=== PATIENT | female | born 1990 | race Caucasian/White ===

== ENCOUNTER 2017-05-08 17:13 | Emergency (ER) | payer OTHER ==
[~2017-05-08] VITALS: Ht 157.5 cm; Wt 56.8 kg
[~2017-05-08 17:13] MED LIST: ACYC800T PO; BENT20TA PO; OMEP40CA2 PO; TOPA1TAB PO; ZYRT10CA PO; bcp
[2017-05-08] MEDS ORDERED: NS 1,000 ML IV ONE (20:30)
[2017-05-08] MEDS ORDERED: ONDANSETRON 4MG/2ML VIAL (J2405) IV ONE (20:30)
[2017-05-08] MEDS ORDERED: KETOROLAC 30 MG/ML VIAL (J1885) IV ONE (20:30)
[2017-05-08 21:46] LABS: BASO % 0.6 % (0.0-1.0); EOS # 0.2 K/mm3 (0.0-0.50); EOS % 1.7 % (0.0-3.0); LARGE UNSTAINED CELL # 0.1 K/mm3 (0.0-0.4); LARGE UNSTAINED CELL % 1.3 % (0.0-4.0); LYMPH % 30.2 % (24.0-44.0); MEAN CORPUSCULAR HEMOGLOBIN 31.1 pg (27.0-33.0); MEAN CORPUSCULAR HGB CONC 34.1 g/dl (32.0-36.5); MEAN CORPUSCULAR VOLUME 91.2 fl (80.0-96.0); MONO # 0.6 K/mm3 (0.0-0.8); NEUTROPHILS # 5.7 K/mm3 (1.8-7.7); NEUTROPHILS % 60.2 % (36.0-66.0); PLATELET COUNT, AUTOMATED 291 k/mm3 (150-450); RED CELL DISTRIBUTION WIDTH 12.3 % (11.5-14.5); WHITE BLOOD COUNT 9.5 K/mm3 (4.0-10.0)
[2017-05-08 22:04] LABS: ALBUMIN 3.7 GM/DL (3.2-5.2); ALKALINE PHOSPHATASE 58 U/L (45-117); ALT/SGPT 16 U/L (12-78); AMYLASE 63 U/L (25-115); ANION GAP 9 MEQ/L (8-16); AST/SGOT 12 U/L (15-37); BILIRUBIN,DIRECT < 0.1 MG/DL (0.0-0.2); BILIRUBIN,TOTAL 0.2 MG/DL (0.2-1.0); BLOOD UREA NITROGEN 13 MG/DL (7-18); CALCIUM LEVEL 8.9 MG/DL (8.5-10.1); CARBON DIOXIDE LEVEL 23 MEQ/L (21-32); CHLORIDE LEVEL 109 MEQ/L (98-107); CREATININE FOR GFR 0.78 MG/DL (0.55-1.02); GLOMERULAR FILTRATION RATE > 60.0 (>60); GLUCOSE, FASTING 82 MG/DL (70-105); SODIUM LEVEL 141 MEQ/L (136-145); TOTAL PROTEIN 7.8 GM/DL (6.4-8.2)
--- NOTE | 2017-05-08 22:20 | REPUSA ---
CLINICAL HISTORY: Left lower quadrant pain. TECHNIQUE: Ultrasound of the pelvis was performed. Transabdominal and vaginal exams were performed. E ndovaginal exam was performed for more complete evaluation of the adnexa. Doppler ultrasound was perf ormed to evaluate ovarian blood flow ULTRASOUND PELVIS : Uterus: 7.9 x 2.4 x 4.7 cm. Normal without masses. Endometrial stripe: Normal 8 mm thickness. Right ovary: 2.2 x 1.8 x 2.5 cm. Normal size. No masses. Normal vascular flow, resistive index 0.57. Left ovary: 3.1 x 1.7 x 3.4 cm. Normal size. No masses. Normal vascular flow, resistive index 0.44. Pelvic fluid: None. IMPRESSION: Normal pelvic ultrasound.
[2017-05-08 22:38] VITALS: BP 111/65
== END 2017-05-08 22:40 | disposition home or self-care (01) ==
LOC: M ED 17:13
DX: R10.32 Left lower quadrant pain (principal); K58.8 Other irritable bowel syndrome; Z72.0 Tobacco use
CPT/HCPCS: 76830; 76856; 80048; 80076; 81001; 81025; 82150; 83690; 85025; 87086; 93976; 96374; 96375; 99283; J1885; J2405

== ENCOUNTER 2017-06-16 17:24 | Day surgery (SDC) | payer OTHER ==
[~2017-06-16] VITALS: Ht 157.5 cm; Wt 57.7 kg
[2017-06-16] MEDS ORDERED: TOPI100T9 PO (17:56)
[2017-06-16] MEDS ORDERED: RECLTAB PO (17:56)
[2017-06-16] MEDS ORDERED: TOPI25TA10 PO (17:56)
[2017-06-16] MEDS ORDERED: ONDANSETRON 4MG/2ML VIAL (J2405) IV ONE (20:00)
[2017-06-16] MEDS ORDERED: MORPHINE 4 MG/ML 1ML SYRINGE IV ONE (20:00)
[2017-06-16] MEDS ORDERED: NS 1,000 ML IV ONE (20:00)
[2017-06-16 20:29] LABS: CONTROL LINE UCG INT CTR LINE PRESENT
[2017-06-16 20:36] LABS: BASO # 0.1 K/mm3 (0.0-0.2); BASO % 0.6 % (0.0-1.0); EOS # 0.4 K/mm3 (0.0-0.50); EOS % 3.3 % (0.0-3.0); LARGE UNSTAINED CELL # 0.1 K/mm3 (0.0-0.4); LARGE UNSTAINED CELL % 0.7 % (0.0-4.0); LYMPH # 2.5 K/mm3 (1.5-6.5); LYMPH % 19.9 % (24.0-44.0); MEAN CORPUSCULAR HGB CONC 33.1 g/dl (32.0-36.5); MEAN CORPUSCULAR VOLUME 90.7 fl (80.0-96.0); MONO # 0.7 K/mm3 (0.0-0.8); MONO % 5.7 % (0.0-5.0); NEUTROPHILS # 8.4 K/mm3 (1.8-7.7); NEUTROPHILS % 69.8 % (36.0-66.0); PLATELET COUNT, AUTOMATED 177 k/mm3 (150-450); RED CELL DISTRIBUTION WIDTH 11.8 % (11.5-14.5)
[2017-06-16] MEDS ORDERED: KETOROLAC 30 MG/ML VIAL (J1885) IV ONE (20:45)
[2017-06-16 20:46] LABS: ALBUMIN 3.7 GM/DL (3.2-5.2); ALBUMIN/GLOBULIN RATIO 1.03 (1.00-1.93); ALKALINE PHOSPHATASE 50 U/L (45-117); ALT/SGPT 16 U/L (12-78); AMYLASE 41 U/L (25-115); ANION GAP 8 MEQ/L (8-16); AST/SGOT 11 U/L (15-37); BILIRUBIN,DIRECT 0.1 MG/DL (0.0-0.2); BILIRUBIN,TOTAL 0.4 MG/DL (0.2-1.0); BLOOD UREA NITROGEN 10 MG/DL (7-18); CALCIUM LEVEL 8.7 MG/DL (8.5-10.1); CARBON DIOXIDE LEVEL 24 MEQ/L (21-32); CHLORIDE LEVEL 106 MEQ/L (98-107); CREATININE FOR GFR 0.84 MG/DL (0.55-1.02); GLOMERULAR FILTRATION RATE > 60.0 (>60); GLUCOSE, FASTING 75 MG/DL (70-105); POTASSIUM SERUM 3.5 MEQ/L (3.5-5.1); SODIUM LEVEL 138 MEQ/L (136-145); TOTAL PROTEIN 7.3 GM/DL (6.4-8.2)
[2017-06-16] MEDS ORDERED: ISOVUE-370 76% 100ML VIAL (Q9967) As Ordered ONE (21:45)
--- NOTE | 2017-06-16 22:40 | REPUSA ---
CT of the abdomen and pelvis with contrast Clinical statement: Pain. Technique: Multiple axial CT images were obtained from the base of the lungs through the floor of the pelvis utilizing 5 mm axial slices after administration of nonionic intravenous contrast. Coronal an d sagittal reconstructions were also obtained. No comparison is available. Findings: Chest: The visualized lung bases are clear. Abdomen: The liver, spleen, pancreas, kidneys, gallbladder, and adrenal glands are unremarkable. The aorta is within normal limits. There is no evidence of abdominal lymphadenopathy or ascites. Pelvis: Moderate amount of stool fills the colon. The cecum is located in the higher mid-abdomen, jus t above the uterus. The appendix is thickened and inflamed, measuring up to 12 mm. Significant surrou nding fluid is noted. There is no evidence of perforation or abscess. There is no evidence of bowel o bstruction. The urinary bladder is within normal limits. The other pelvic structures appear grossly i ntact. There is no evidence of pelvic lymphadenopathy. There is a small amount of free fluid in the c ul-de-sac. Bones: There are no suspicious osseous abnormalities seen. Impression: 1. Acute appendicitis. No evidence of abscess or perforation. Significant surrounding inflammation an d fluid. 2. Small amount of free fluid in the cul-de-sac. 3. Moderate constipation. Dr. Tuttle was notified of these findings at 10:30 PM on 06/16/2017.
[2017-06-16] MEDS ORDERED: PIPERACILLIN/TAZOBACTAM SOD 3.375 GM in D5W MINI-BAG PLUS 50 ML IV ONE (22:45)
[2017-06-16] MEDS ORDERED: FLON50SP (22:57)
[2017-06-16] MEDS ORDERED: OMEP20CA3 PO (22:57)
[2017-06-16] MEDS ORDERED: CETI10TA PO (22:57)
[2017-06-16] MEDS ORDERED: ONDANSETRON 4MG/2ML VIAL (J2405) IV PRN (23:00)
[2017-06-16] MEDS ORDERED: ACETAMINOPHEN TAB 650MG DOSE (2X325MG) PO PRN (23:00)
[2017-06-16] MEDS ORDERED: ZOSYN 3.375 GM VIAL (J2543) As Ordered ONE (23:54)
[2017-06-17] VITALS (10 sets, daily range): BP systolic 100–121; BP diastolic 52–63
[2017-06-17] MEDS ORDERED: PERCOCET 5MG/325MG TAB As Ordered ONE ×2 (00:27→14:38)
[2017-06-17] MEDS: PERCOCET 5MG/325MG TAB PO PRN ×4 (00:28→18:35)
[2017-06-17] MEDS: LR 1,000 ML IV SCH ×2 (00:51→07:03)
[2017-06-17] MEDS: PIPERACILLIN/TAZOBACTAM SOD 3.375 GM in D5W MINI-BAG PLUS 50 ML IV SCH ×3 (06:07→17:50)
[2017-06-17] MEDS ORDERED: KCL 20MEQ IN D5/.45NACL 1000ML As Ordered ONE (09:20)
[2017-06-17] MEDS: SENOKOT S TAB PO SCH ×2 (09:25→20:31)
[2017-06-17] MEDS: KCL 20MEQ IN D5/0.45NS 1000ML 1,000 ML IV SCH ×2 (09:25→22:13)
[2017-06-17] MEDS: ACYCLOVIR 200 MG CAPSULE PO SCH (11:47)
--- NOTE | 2017-06-17 12:04 | HPEPDOC ---
General Surgery H&P Date of Admission History and Physical CHIEF COMPLAINT: abdominal pain HISTORY OF PRESENT ILLNESS: Patient presents with 3 to 4 day history of periumbilical, suprapubic and epigastric discomfort and tenderness with nausea. Just prior known history of irritable bowel syndrome by her manifestations mainly crampy abdominal pain usually at the epigastric and periumbilical area which she she initially thought was what she was having. After a while that the discomfort did not feel as her usual type of crampy pain and is more associated with any nausea 4 thus she consulted at the emergency room. She denies noting any fever. She denies diarrhea or constipation. ALLERGIES: Please see below. HOME MEDICATIONS: Please see below. PAST MEDICAL HISTORY: Irritable Bowel Syndrome migraines PAST SURGICAL HISTORY: 2 caesarian sections PERSONAL/SOCIAL HISTORY: Denies smoking (5 cigs a day), alcohol use, or recreational drug use REVIEW OF SYSTEMS: GENERAL: Denies chills, fatigue, fever, weight gain and weight loss. HEENT: Denies blurred vision and double vision. Denies ear symptoms. Denies hoarseness. NECK: Denies any neck pain. CARDIOVASCULAR: Denies chest pain and palpitations. MUSCULOSKELETAL: Denies arthralgias, back pain and thrombophlebitis. SKIN: Denies rash. NEUROLOGIC: Reports migraine headaches once a week PSYCHIATRIC: Denies anxiety and depression. ENDOCRINE: Denies thyroid disease. HEMATOLOGY/ONCOLOGY: Denies any bleeding or clotting disorder. HEART: Denies any chest pains, palpitations, paroxysmal dyspnea, orthopnea. PULMONARY: Denies chronic cough, dyspnea and wheezing. GASTROINTESTINAL: Patient reports crampy abdominal pain secondary to irritable bowel syndrome. GENITOURINARY: Denies dysuria, frequency, hematuria and nocturia. ENDOCRINE: Denies polydipsia, polyphagia, polyuria, heat or cold intolerance. INFECTIOUS: Denies any recent upper respiratory tract infection, UTI, need for use of antibiotics. NUTRITION: Fair appetite. PHYSICAL EXAMINATION: VITAL SIGNS: Please see below. GENERAL APPEARANCE: Patient seen at bedside, appears comfortable. Awake, alert, oriented. HEENT: Normocephalic, atraumatic. [place] palpebral conjunctivae. Anicteric sclerae. Lips moist. CHEST: No chest wall abnormalities. Normal respiratory motion/effort. NECK: Supple. No thyromegaly. No lymphadenopathies. LUNGS: Lung sounds are clear to auscultation bilaterally. No wheezing appreciated. HEART: No chest wall abnormalities. Heart rate and rhythm are regular with no murmurs. ABDOMEN: Abdomen is mildly distended, soft, slightly rounded. No hepatosplenomegaly. Patient has point tenderness over the suprapubic area and mild rebound also quite tender over the epigastric area. Mild tenderness over the periumbilical area and right lower quadrant area. Nontender operative left lower quadrant area SKIN: Warm, moist. EXTREMITIES: Extremities have no deformities. No edema identified. NEUROLOGICAL: awake, alert, oriented ANCILLARIES: . LABORATORY DATA: Please see below. MICROBIOLOGY: Please see below. IMAGING: CT abdomen and pelvis Abdomen: The liver, spleen, pancreas, kidneys, gallbladder, and adrenal glands are unremarkable. The aorta is within normal limits. There is no evidence of abdominal lymphadenopathy or ascites. Pelvis: Moderate amount of stool fills the colon. The cecum is located in the higher mid-abdomen, just above the uterus. The appendix is thickened and inflamed, measuring up to 12 mm. Significant surrounding fluid is noted. There is no evidence of perforation or abscess. There is no evidence of bowel obstruction. The urinary bladder is within normal limits. The other pelvic structures appear grossly intact. There is no evidence of pelvic lymphadenopathy. There is a small amount of free fluid in the cul-de-sac. Bones: There are no suspicious osseous abnormalities seen. Impression: 1. Acute appendicitis. No evidence of abscess or perforation. Significant surrounding inflammation and fluid. 2. Small amount of free fluid in the cul-de-sac. 3. Moderate constipation. IMPRESSION AND PLAN: Acute Appendicitis with localized peritonitis Patient has been advised for need for surgery. We will perform laparoscopic appendcectomy. Details of the procedure, risks and benefits fully discussed with the patient and consent obtained. I will give her zosyn for perioperative antibiotics while awaiting availability of the OR Patient's main area of pain and ileus at the epigastric area which is a bit away from the location of the appendix. We'll also take a look at the area for any possible explanation for this or this could just be part of her irritable bowel syndrome. Vital Signs Vital Signs Date Time Temp Pulse Resp B/P (MAP) Pulse Ox O2 Delivery O2 Flow Rate FiO2 06/17/17 00:58 18 06/17/17 00:35 99.0 67 121/61 (81) 98 Room Air I&Os I&O- Last 24 Hours up to 6 AM 06/17/17 06:00 Intake Total 1050 ml Output Total 300 ml Balance 750 ml Laboratory Data Labs 24H Laboratory Tests 2 06/16/17 20:11: Urine Appearance CLEAR, Urine Color YELLOW, Urine pH 7.0, Urine Specific [place] 1.011, Urine Protein NEGATIVE, Urine Glucose (UA) NEGATIVE, Urine Ketones 1+H, Urine Urobilinogen 0.2, Urine Bilirubin NEGATIVE, Urine Leukocyte Esterase TRACEH, Urine Blood NEGATIVE, Urine Nitrite NEGATIVE, Urine WBC (Auto) 1, Urine RBC (Auto) 5H, Urine Hyaline Casts (Auto) 0, Urine Bacteria (Auto) 1+H , Urine Squamous Epithelial Cells 0, Urine Sperm (Auto) 06/16/17 20:17: White Blood Count 12.0H, Red Blood Count 4.16, Hemoglobin 12.5, Hematocrit 37.8 , Mean Corpuscular Volume 90.7, Mean Corpuscular Hemoglobin 30.0, Mean Corpuscular Hemoglobin Concent 33.1, Red Cell Distribution Width 11.8, Platelet Count 177, Neutrophils (%) (Auto) 69.8H, Lymphocytes (%) (Auto) 19.9L, Monocytes (%) (Auto) 5.7H, Eosinophils (%) (Auto) 3.3H, Basophils (%) (Auto) 0.6 , Neutrophils # (Auto) 8.4H, Lymphocytes # (Auto) 2.5, Monocytes # (Auto) 0.7, Eosinophils # (Auto) 0.4, Basophils # (Auto) 0.1, Large Unclassified Cells % 0.7 , Large Unclassified Cells # 0.1, Anion Gap 8, Glomerular Filtration Rate > 60.0 , Calcium Level 8.7, Aspartate Amino Transf (AST/SGOT) 11L, Alanine Aminotransferase (ALT/SGPT) 16, Alkaline Phosphatase 50, Total Bilirubin 0.4, Direct Bilirubin 0.1, Total Protein 7.3, Albumin 3.7, Albumin/Globulin Ratio 1.03, Amylase Level 41, Lipase 75 06/16/17 20:19: Urine Test NEGATIVE CBC/BMP Laboratory Tests 06/16/17 20:17 Red Blood Count 4.16, Mean Corpuscular Volume 90.7, Mean Corpuscular Hemoglobin 30.0, Mean Corpuscular Hemoglobin Concent 33.1, Red Cell Distribution Width 11.8 , Neutrophils (%) (Auto) 69.8 H, Lymphocytes (%) (Auto) 19.9 L, Monocytes (%) ( Auto) 5.7 H, Eosinophils (%) (Auto) 3.3 H, Basophils (%) (Auto) 0.6, Neutrophils # (Auto) 8.4 H, Lymphocytes # (Auto) 2.5, Monocytes # (Auto) 0.7, Eosinophils # (Auto) 0.4, Basophils # (Auto) 0.1 Home Medications Scheduled (Reclipsen 0.15-30 mg-Mcg) 1 Tab Tab, 1 TAB PO QHS, (Reported) (Flonase Allergy Relief Ch) 50 Mcg/Act Spr, 1 SPRAY NA DAILY, (Reported) Acyclovir (Acyclovir) 800 Mg Tab, 800 MG PO QHS, (Reported) Cetirizine HCl (Cetirizine HCl) 10 Mg Tab, 10 MG PO QHS, (Reported) Omeprazole (Omeprazole) 20 Mg Cap, 20 MG PO DAILY, (Reported) Topiramate (Topiramate) 25 Mg Tab, 25 MG PO BID, (Reported) Topiramate (Topiramate) 100 Mg Tab, 100 MG PO QHS, (Reported) Allergies Coded Allergies: Aspirin (Unverified Allergy, Intermediate, HIVES, 06/16/17) Morphine (Verified Allergy, Intermediate, HIVES, 06/16/17) THANH PERSON MD Jun 17, 2017 05:35
[2017-06-17] MEDS ORDERED: LIDOCAINE 1% SDV INJ 30 ML VIAL As Ordered ONE (12:39)
[2017-06-17] MEDS ORDERED: BUPIVACAINE HCL 0.25% 30 ML VIAL As Ordered ONE (12:40)
[2017-06-17] MEDS ORDERED: ZOSYN 3.375 GM VIAL (J2543) As Ordered ONE (12:56)
[2017-06-17] MEDS ORDERED: fentaNYL 250 MCG/5 ML INJECTION (J3010) As Ordered ONE (13:14)
[2017-06-17] MEDS ORDERED: MIDAZOLAM INJ 2 MG/2 ML VIAL (J2250) As Ordered ONE (13:14)
[2017-06-17] MEDS ORDERED: PROPOFOL 200 MG/20 ML VIAL As Ordered ONE (13:14)
[2017-06-17] MEDS ORDERED: ROCURONIUM BROMIDE 50 MG/5 ML VIAL/SYRINGE As Ordered ONE (13:14)
[2017-06-17] MEDS ORDERED: LIDOCAINE 2% INJ 100 MG/5 ML SDV (FOR ANES.) As Ordered ONE (13:14)
[2017-06-17] MEDS ORDERED: METOCLOPRAMIDE INJ 10MG/2ML VIAL (J2765) As Ordered ONE ×2 (13:15→14:49)
[2017-06-17] MEDS ORDERED: PHENYLephrine HCL 500 MCG/5 ML (100MCG/ML) SYRINGE (J2370) As Ordered ONE (13:42)
[2017-06-17] MEDS ORDERED: ONDANSETRON 4MG/2ML VIAL (J2405) As Ordered ONE ×2 (13:53→14:38)
[2017-06-17] MEDS ORDERED: GLYCOPYRROLATE INJ 0.2 MG/ML 2 ML VIAL As Ordered ONE (13:55)
[2017-06-17] MEDS ORDERED: NEOSTIGMINE 10 MG/10 ML VIAL (J2710) As Ordered ONE (13:56)
--- NOTE | 2017-06-17 14:29 | ROOPDOC ---
[facility] Report Of Operation Report of Operation DATE OF PROCEDURE: 06/17/17 PREPROCEDURE DIAGNOSES: Acute Appendicitis. POSTPROCEDURE DIAGNOSES: Acute Appendicitis. PROCEDURE: Laparoscopic Appendectomy. SURGEON: Jacques Marie MD [employer] COMMISSIONER: ANESTHESIA: general anesthesia ESTIMATED BLOOD LOSS: Approximately mL. COMPLICATIONS: . REMARKS: . PROCEDURE NOTE: Operative findings include uterus adhered to the anterior abdominal wall, tiny fascial defects in the midline closure from her but no gross hernia. Gallbladder distended but noninflamed. Appendix located in the retrocecal course adhered to the right pelvic sidewall where the iliac vessels course. On manipulating the appendix a small amount of purulent drainage Armando out on disconnecting the appendix from the posterolateral sidewall. DESCRIPTION OF PROCEDURE: Patient has been given a dose of Zosyn perioperatively.Patient was brought to the operating room, placed supine on the table. Sequential compression device placed for DVT prophylaxis. General endotracheal anesthesia started. The abdomen prepped and draped in usual sterile fashion. After a surgical timeout, we began our surgery Entry into the abdomen done through an incision above the umbilicus. Veress needle inserted on a controlled fashion. Intra-abdominal placement confirmed with saline drop technique. CO2 insufflation started to a pressure of 15 mmHg. Using the same incision a 12 mm port was placed under direct vision of laparoscope. Insertion site was inspected for injury and none was found. He was placed on a Trendelenburg position the right side tilted to about 30 to allow for better visualization of the appendix. 2 working ports were placed left upper quadrant and left lower quadrant area under direct vision. The uterus is adhered to the suprapubic area were I usually place a 5 mm suprapubic port. Operative findings include uterus adhered to the anterior abdominal wall, tiny fascial defects in the midline closure from her but no gross hernia. Gallbladder distended but noninflamed. Appendix located in the retrocecal course adhered to the right pelvic sidewall where the iliac vessels course. On manipulating the appendix a small amount of purulent drainage Armando out on disconnecting the appendix from the posterolateral sidewall. The appendix was located, the adhered bowels and mesentery was widely dissected away from the appendix freeing up the appendix from the inflammatory adhesions using [place] instrument and suction irrigation. The Surrounding bowels retracted away from the appendix. The peritoneal attachments of the appendix as it courses behind the medial part of the cecal side wall was opened up with Harmonic Scalpel. Starting at the midportion the mesial appendix was divided close to the wall of the appendix going down towards the base. Once an adequate window was created were able to lift the distal tip of the appendix from its attachments to the pelvic posterior lateral sidewall. There is a small amount of mucoid purulent drainage that came out as we disconnected the appendix from the sidewall of the pelvis. This was controlled with suction. The rest of the mesial appendix was further divided to free up the appendix down to its base. 2 0 -PDS Endoloop was placed to ligate the appendix at its base then divided with a Harmonic Scalpel the stump cauterized. Stump appears healthy. Appendix was then delivered into an Endo Catch bag. After re-insufflation the surgical site was inspected for hemostasis, the visualized fluid collections in the right gutter and in the pelvis was irrigated and suctioned off until clear return. Surrounding areas of the abdomen and inspected for fluid collections or signs of injury. The abdomen was deflated. All ports removed. The umbilical fascial defect repaired with 0 Vicryl in a mattress fashion. All skin incisions closed with 4-0 Monocryl in a subcuticular fashion. Steri-Strips and gauze dressing used for wound coverage. Patient was promptly awake and extubated and brought to recovery room stable. All counts of sponges and instruments verified to be correct. JACQUES MARIE MD Jun 17, 2017 13:15
[2017-06-17] MEDS ORDERED: LR 1,000 ML IV SCH (14:30)
[2017-06-17] MEDS ORDERED: ONDANSETRON 4MG/2ML VIAL (J2405) IV PRN (14:30)
[2017-06-17] MEDS ORDERED: PERCOCET 5MG/325MG TAB PO PRN (14:30)
[2017-06-17] MEDS ORDERED: KETOROLAC 30 MG/ML VIAL (J1885) As Ordered ONE (14:41)
[2017-06-17] MEDS: KETOROLAC 30 MG/ML VIAL (J1885) IV PRN ×2 (14:45→20:49)
[2017-06-17] MEDS ORDERED: METOCLOPRAMIDE INJ 10MG/2ML VIAL (J2765) IV ONE (15:00)
[2017-06-17] MEDS ORDERED: fentaNYL 100 MCG/2 ML INJECTION (J3010) As Ordered ONE (15:04)
[2017-06-17] MEDS: fentaNYL 100 MCG/2 ML INJECTION (J3010) IV PRN ×3 (15:07→15:19)
[2017-06-17] MEDS: OMEPRAZOLE 20 MG CAP PO SCH (16:33)
[2017-06-17] MEDS ORDERED: PROMETHAZINE INJ 25 MG/ML VIAL (J2550) As Ordered ONE (17:30)
[2017-06-17] MEDS ORDERED: PROMETHAZINE INJ 25 MG/ML VIAL (J2550) IV ONE (18:00)
[2017-06-17] MEDS: TOPIRAMATE (TopAMAX) 25 MG TAB PO SCH (20:31)
[2017-06-17] MEDS ORDERED: TOPIRAMATE (TopAMAX) 100 MG TAB PO SCH (21:00)
[2017-06-17] MEDS ORDERED: CETIRIZINE (ZyrTEC) 10 MG TAB PO SCH (21:00)
[2017-06-18] VITALS: BP 109/60
[2017-06-18] MEDS: PIPERACILLIN/TAZOBACTAM SOD 3.375 GM in D5W MINI-BAG PLUS 50 ML IV SCH ×2 (00:36→05:58)
[2017-06-18] MEDS: PERCOCET 5MG/325MG TAB PO PRN ×4 (00:39→13:49)
[2017-06-18 04:00] VITALS: BP 109/55
[2017-06-18 06:40] LABS: BASO % 0.1 % (0.0-1.0); EOS # 0.1 K/mm3 (0.0-0.50); LARGE UNSTAINED CELL # 0.1 K/mm3 (0.0-0.4); LARGE UNSTAINED CELL % 0.7 % (0.0-4.0); LYMPH # 0.9 K/mm3 (1.5-6.5); LYMPH % 12.2 % (24.0-44.0); MEAN CORPUSCULAR HEMOGLOBIN 31.8 pg (27.0-33.0); MEAN CORPUSCULAR HGB CONC 35.4 g/dl (32.0-36.5); MEAN CORPUSCULAR VOLUME 89.7 fl (80.0-96.0); MONO # 0.3 K/mm3 (0.0-0.8); MONO % 4.7 % (0.0-5.0); NEUTROPHILS # 5.9 K/mm3 (1.8-7.7); NEUTROPHILS % 81.3 % (36.0-66.0); PLATELET COUNT, AUTOMATED 135 k/mm3 (150-450); RED CELL DISTRIBUTION WIDTH 11.5 % (11.5-14.5); WHITE BLOOD COUNT 7.2 K/mm3 (4.0-10.0)
[2017-06-18 06:51] LABS: ANION GAP 6 MEQ/L (8-16); BLOOD UREA NITROGEN 4 MG/DL (7-18); CALCIUM LEVEL 7.8 MG/DL (8.5-10.1); CARBON DIOXIDE LEVEL 23 MEQ/L (21-32); CHLORIDE LEVEL 114 MEQ/L (98-107); CREATININE FOR GFR 0.75 MG/DL (0.55-1.02); GLOMERULAR FILTRATION RATE > 60.0 (>60); GLUCOSE, FASTING 128 MG/DL (70-105); POTASSIUM SERUM 3.6 MEQ/L (3.5-5.1); SODIUM LEVEL 143 MEQ/L (136-145)
[2017-06-18 08:00] VITALS: BP 111/55
[2017-06-18] MEDS: KETOROLAC 30 MG/ML VIAL (J1885) IV PRN (08:31)
[2017-06-18] MEDS: ACYCLOVIR 200 MG CAPSULE PO SCH (08:32)
[2017-06-18] MEDS: OMEPRAZOLE 20 MG CAP PO SCH (08:32)
[2017-06-18] MEDS: SENOKOT S TAB PO SCH (08:32)
[2017-06-18] MEDS: TOPIRAMATE (TopAMAX) 25 MG TAB PO SCH (08:32)
[2017-06-18] MEDS ORDERED: FLUTICASONE PROP 0.05% NASAL SPRAY 16 GM (FLONASE) SCH (09:00)
[2017-06-18] MEDS ORDERED: AUGM875T28 PO (10:18)
[2017-06-18] MEDS ORDERED: PERCOCET PO (10:18)
== END 2017-06-18 14:00 | disposition home or self-care (01) ==
LOC: M ED 17:24 → M SDC 22:51 → M PED 06-17 00:38 → M SDC 06-18 14:00
PROVIDERS: ATTEND Surgery
DX: K35.80 Unspecified acute appendicitis (principal); Z88.6 Allergy status to analgesic agent; Z91.018 Allergy to other foods; Z72.0 Tobacco use
CPT/HCPCS: 36415; 44970; 74177; 80048; 80076; 81001; 81025; 82150; 83690; 84703; 85025; 88304; 96374; 96375; 96376; 99284; J1885; J2250; J2370; J2405; J2543; J2710; J2765; J3010; Q9967

== ENCOUNTER → 2017-06-29 | Outpatient (CLI) | payer OTHER ==
[~2017-06-29] MED LIST changes: +AUGM875T28 PO; +CETI10TA PO; +FLON50SP; +OMEP20CA3 PO; +PERCOCET PO; +RECLTAB PO; +TOPI100T9 PO; +TOPI25TA10 PO
[2017-06-29 17:57] LABS: MEAN CORPUSCULAR VOLUME 90.9 fl (80.0-96.0); PLATELET COUNT, AUTOMATED 317 10^3/uL (150-450); RED CELL DISTRIBUTION WIDTH 11.8 % (11.5-14.5)
[2017-06-29 21:42] LABS: EOSINOPHILS 3 % (0-5)
== END ==
LOC: M LAB 15:23
PROVIDERS: ATTEND Surgery
DX: K58.9 Irritable bowel syndrome, unspecified (principal)

== ENCOUNTER → 2018-12-06 | Outpatient (CLI) | payer OTHER ==
[~2018-12-06] MED LIST changes: -RECLTAB PO; +[UNRECOGNIZED DRUG - CODE] PO
--- NOTE | 2018-12-06 20:44 | REP ---
Clinical: Left foot pain Technique: AP, lateral, bilateral oblique views left foot . Findings: The osseous structures and joint spaces are intact and normal. There is no evidence for acute fracture or dislocation. Surrounding soft tissues are unremarkable. No subcutaneous emphysema or radiodense foreign body. Impression: Normal left foot series . No acute fracture or dislocation. Electronically Signed by Bryon Stevens MD 12/06/2018 08:37 P
--- NOTE | 2018-12-06 21:01 | REP ---
Clinical: Dyspnea . Comparison: None . Technique: PA and lateral. Findings: The mediastinum and cardiac silhouette are normal. The lung de santiago are clear and without acute consolidation, effusion, or pneumothorax. The skeletal structures are intact and normal. Impression: 1. No acute cardiopulmonary process. Electronically Signed by Bryon Stevens MD 12/06/2018 08:53 P
== END ==
LOC: M WUC 17:36
PROVIDERS: ATTEND Physician Assistant
DX: M79.672 Pain in left foot (principal); R06.00 Dyspnea, unspecified

== ENCOUNTER → 2019-04-14 | Outpatient (REF) | payer OTHER ==
[~2019-04-14] MED LIST changes: -OMEP20CA3 PO; +OMEP20CA4 PO
== END ==
LOC: M SFHCLERA 16:32
PROVIDERS: ATTEND Nurse Practitioner Family
DX: R05 Cough (principal)